=== PATIENT | female | born 1935 | race Caucasian/White ===

== ENCOUNTER → 2016-12-12 | Outpatient (CLI) | payer MEDICARE | END | disposition home or self-care (01) | LOC: CVU 14:26 | PROVIDERS: ATTEND Internal Medicine Cardiovascular Disease | DX: I08.3 Combined rheumatic disorders of mitral, aortic and tricuspid valves (principal); I37.1 Nonrheumatic pulmonary valve insufficiency; I51.7 Cardiomegaly; E78.00 Pure hypercholesterolemia, unspecified; Z87.891 Personal history of nicotine dependence; R01.1 Cardiac murmur, unspecified; I65.23 Occlusion and stenosis of bilateral carotid arteries | CPT/HCPCS: 93306; 93880 ==

== ENCOUNTER → 2017-01-25 | Outpatient (CLI) | payer MEDICARE ==
[~2017-01-25] VITALS: Ht 152.4 cm; Wt 54.5 kg
[~2017-01-25] MED LIST: ALBU8.5H3 INH; ASPI-496 PO; ATOR40TA78 PO; CLOP75TA22 PO
[2017-01-25 12:43] LABS: ASPARTATE AMINO TRANSFERASE 23 U/L (15-37); BLOOD UREA NITROGEN 22 mg/dL (7-18)
== END | disposition home or self-care (01) ==
LOC: STAR 11:30
PROVIDERS: ATTEND Internal Medicine Cardiovascular Disease
DX: Z01.818 Encounter for other preprocedural examination (principal); I73.9 Peripheral vascular disease, unspecified
CPT/HCPCS: 36415; 71020; 80053; 85025; 85610; 85730

== ENCOUNTER 2017-01-29 06:36 | Day surgery (SDC) | payer MEDICARE ==
[~2017-01-29] VITALS: Ht 152.4 cm; Wt 53.0 kg
[2017-01-29] MEDS ORDERED: SODIUM CHLORIDE 0.9% 1,000 ML IV SCH (06:55)
[2017-01-29 07:15] VITALS: BP 107/59
[2017-01-29] MEDS ORDERED: PROTAMINE SULFATE 10 MG/ML, 25ML ONE (07:35)
[2017-01-29] MEDS ORDERED: MIDAZOLAM 1 MG/ML, 5ML ONE (07:35)
[2017-01-29] MEDS ORDERED: NALOXONE 1 MG/ML, 2ML ONE (07:36)
[2017-01-29] MEDS ORDERED: FLUMAZENIL 0.1 MG/1 ML, 5ML ONE (07:36)
[2017-01-29] MEDS ORDERED: HEPARIN 1,000 UNITS/ML, 10ML ONE (07:36)
[2017-01-29] MEDS ORDERED: FENTANYL PF 100 MCG/2ML ONE (07:36)
[2017-01-29] MEDS ORDERED: NITROGLYCERIN 5 MG/ML, 10ML ONE (07:36)
[2017-01-29] MEDS ORDERED: LIDOCAINE 2%, 20ML ONE (07:49)
[2017-01-29] MEDS ORDERED: VISIPAQUE 270 MG/ML, 150ML BOTTLE ONE (09:27)
== END 2017-01-29 12:05 | disposition home or self-care (01) ==
LOC: OUT 06:36
PROVIDERS: ATTEND Internal Medicine Cardiovascular Disease
DX: I70.213 Atherosclerosis of native arteries of extremities with intermittent claudication, bilateral legs (principal); J44.9 Chronic obstructive pulmonary disease, unspecified; I48.91 Unspecified atrial fibrillation; I25.2 Old myocardial infarction
CPT/HCPCS: 37221; 37223; 75625; 75716; 99156; 99157; C1725; C1751; C1760; C1769; C1876; C1894; J1644; J2250; J3010; J3490; J7030; Q9966; 75630; J2720; J2310

== ENCOUNTER 2018-12-06 10:41 | Inpatient (IN) | payer MEDICARE ==
[~2018-12-06] VITALS: Ht 152.4 cm; Wt 53.3 kg
[~2018-12-06 10:41] MED LIST changes: -ALBU8.5H3 INH; +ALBU8.5H8 INH; -CLOP75TA22 PO; +CLOP75TA52 PO
[2018-12-06] MEDS ORDERED: SODIUM CHLORIDE FLUSH 10ML SYR IVF ONE (11:30)
--- NOTE | 2018-12-06 11:37 | NUR ---
Assumed care of pt. Pt presents to ED with c/o epigastric/periumbilical pain with no BM for about 6 days. Pt also states sudden onset of bilateral lower leg edema. Mild amount of distress noted. Breathing regular and unlabored. POC discussed. Will continue to monitor.
[2018-12-06 11:48] LABS: BASOPHILS # (AUTO) 0.09 x10^3/uL (0-0.1); BASOPHILS % (AUTO) 1 % (0-1); EOSINOPHILS # (AUTO) 0.09 x10^3/uL (0-0.4); EOSINOPHILS % (AUTO) 1 % (1-7); LYMPHOCYTES # (AUTO) 1.17 x10^3/uL (1-3.4); LYMPHOCYTES % (AUTO) 15 % (22-44); MD NO; MEAN CORPUSCULAR HEMOGLOBIN 29.3 pg (27.0-34.8); MEAN CORPUSCULAR HGB CONC 32.2 g/dL (32.4-35.8); MEAN CORPUSCULAR VOLUME 91.1 fL (80-100); MEAN PLATELET VOLUME 9.3 fL (7.4-10.4); MONOCYTES # (AUTO) 0.47 x10^3/uL (0.2-0.8); MONOCYTES % (AUTO) 6 % (2-9); NEUTROPHILS # (AUTO) 6.09 x10^3/uL (1.8-6.8); NEUTROPHILS % (AUTO) 77 % (42-75); PLATELET COUNT 177 x10^3/uL (130-400); RED CELL DISTRIBUTION WIDTH 15.8 % (9.6-15.2)
[2018-12-06 11:53] LABS: ALANINE AMINOTRANSFERASE 26 U/L (12-78); ALBUMIN 3.5 g/dL (3.4-5.0); ANION GAP 7 mmol/L (5-15); CALCIUM 8.5 mg/dL (8.5-10.1); CHLORIDE 112 mmol/L (98-107); CREATININE 0.97 mg/dL (0.55-1.02)
[2018-12-06 11:58] LABS: ALKALINE PHOSPHATASE 71 U/L (45-117); BILIRUBIN,TOTAL 0.8 mg/dL (0.2-1.0); TOTAL PROTEIN 6.6 g/dL (6.4-8.2)
--- NOTE | 2018-12-06 12:37 | NUR ---
IV STARTED. ERMD AT BEDSIDE TO UPDATE POC.
[2018-12-06] MEDS ORDERED: FUROSEMIDE 20 MG/2 ML IV ONE (13:00)
[2018-12-06] MEDS ORDERED: FUROSEMIDE 40 MG/4 ML ONE (13:21)
--- NOTE | 2018-12-06 13:26 | NUR ---
PT MEDICATED PER NOV. 5 RIGHTS VERIFIED PRIOR. 3 P'S ADDRESSED. POC UPDATED.
--- NOTE | 2018-12-06 13:40 | NUR ---
PT UP TO RESTROOM TO URINATE.
--- NOTE | 2018-12-06 13:59 | NUR ---
REPORT TO KENYA MA.
[2018-12-06 14:59] VITALS: BP 136/83
[2018-12-06] MEDS ORDERED: LABETALOL 5MG/ML, 20ML IVPush PRN (17:30)
[2018-12-06] MEDS ORDERED: ALBUTEROL SULFATE 2.5 MG/3 ML NPPB PRN (17:30)
[2018-12-06] MEDS ORDERED: hydrALAzine 20 MG/ML, 1ML IVPush PRN (17:30)
[2018-12-06] MEDS: HEPARIN 5,000 UNITS/ML, 1ML SQ SCH (17:50)
[2018-12-06 20:08] VITALS: BP 142/93
[2018-12-06] MEDS: ATORVASTATIN 40 MG TABLET PO SCH (22:02)
[2018-12-07 01:38] VITALS: BP 160/102
[2018-12-07] MEDS: HEPARIN 5,000 UNITS/ML, 1ML SQ SCH ×3 (01:57→21:36)
[2018-12-07 02:01] VITALS: BP 132/80
[2018-12-07] MEDS ORDERED: POTASSIUM CHLORIDE 20 MEQ TAB.ER.PRT PO ONE (07:00)
[2018-12-07] MEDS ORDERED: FUROSEMIDE 40 MG/4 ML IV ONE (07:00)
[2018-12-07 07:02] VITALS: BP 134/93
[2018-12-07 08:01] LABS: ANION GAP 7 mmol/L (5-15); CALCIUM 8.4 mg/dL (8.5-10.1); CHLORIDE 109 mmol/L (98-107)
[2018-12-07] MEDS: ASPIRIN 81 MG TABLET EC PO SCH (08:12)
[2018-12-07] MEDS: CLOPIDOGREL 75 MG TABLET PO SCH (08:12)
[2018-12-07 09:23] LABS: TROPONIN I 0.052 ng/mL (0.000-0.045)
[2018-12-07 12:55] VITALS: BP 154/103
[2018-12-07] MEDS: METOPROLOL TARTRATE 25 MG TABLET PO SCH ×2 (14:21→19:24)
[2018-12-07 18:46] VITALS: BP 137/81
[2018-12-07] MEDS: APIXABAN 2.5 MG TABLET PO SCH (19:24)
[2018-12-07] MEDS: ATORVASTATIN 40 MG TABLET PO SCH (19:24)
[2018-12-08 01:25] VITALS: BP 142/83
[2018-12-08 05:57] VITALS: BP 135/65
[2018-12-08] MEDS: METOPROLOL TARTRATE 25 MG TABLET PO SCH (06:00)
[2018-12-08 06:52] VITALS: BP 131/84
[2018-12-08] MEDS: CLOPIDOGREL 75 MG TABLET PO SCH (07:51)
[2018-12-08] MEDS: ASPIRIN 81 MG TABLET EC PO SCH (07:51)
[2018-12-08] MEDS: APIXABAN 2.5 MG TABLET PO SCH (07:51)
[2018-12-08 08:30] LABS: BASOPHILS # (AUTO) 0.06 x10^3/uL (0-0.1); BASOPHILS % (AUTO) 1 % (0-1); EOSINOPHILS # (AUTO) 0.07 x10^3/uL (0-0.4); EOSINOPHILS % (AUTO) 1 % (1-7); LYMPHOCYTES # (AUTO) 1.74 x10^3/uL (1-3.4); LYMPHOCYTES % (AUTO) 24 % (22-44); MD NO; MEAN CORPUSCULAR HEMOGLOBIN 29.4 pg (27.0-34.8); MEAN CORPUSCULAR HGB CONC 32.1 g/dL (32.4-35.8); MEAN CORPUSCULAR VOLUME 91.5 fL (80-100); MEAN PLATELET VOLUME 9.2 fL (7.4-10.4); MONOCYTES # (AUTO) 0.76 x10^3/uL (0.2-0.8); MONOCYTES % (AUTO) 10 % (2-9); NEUTROPHILS # (AUTO) 4.66 x10^3/uL (1.8-6.8); NEUTROPHILS % (AUTO) 64 % (42-75); PLATELET COUNT 170 x10^3/uL (130-400); RED BLOOD COUNT 4.85 x10^6/uL (3.82-5.3); RED CELL DISTRIBUTION WIDTH 15.3 % (9.6-15.2)
[2018-12-08 08:41] LABS: ANION GAP 9 mmol/L (5-15); CALCIUM 8.5 mg/dL (8.5-10.1); CHLORIDE 107 mmol/L (98-107)
[2018-12-08] MEDS ORDERED: LISINOPRIL 5 MG TABLET PO SCH (09:00)
[2018-12-08] MEDS ORDERED: SPIRONOLACTONE 25 MG TABLET PO SCH (09:00)
[2018-12-08] MEDS ORDERED: REGADENOSON 0.4 MG/5 ML SYRINGE ONE (09:15)
[2018-12-08] MEDS ORDERED: POTASSIUM CHLORIDE 20 MEQ TAB.ER.PRT PO ONE (10:00)
[2018-12-08] MEDS ORDERED: FUROSEMIDE 20 MG/2 ML IV ONE (10:00)
[2018-12-08 13:03] VITALS: BP 131/76
[2018-12-08] MEDS ORDERED: APIX2.5T PO (13:53)
[2018-12-08] MEDS ORDERED: METO25TA35 PO (13:53)
[2018-12-08] MEDS ORDERED: SPIR25TA PO (13:53)
[2018-12-08] MEDS ORDERED: LISI5TAB7 PO (13:53)
== END 2018-12-08 16:47 | disposition home or self-care (01) | DRG 308 ==
LOC: ED 12:47 → EDIP 12:48 → ED 13:08 → 5SO 14:34
PROVIDERS: ADMIT Hospitalist; ATTEND Hospitalist
DX: I48.0 Paroxysmal atrial fibrillation (principal); I50.43 Acute on chronic combined systolic (congestive) and diastolic (congestive) heart failure; I49.3 Ventricular premature depolarization; I25.2 Old myocardial infarction; I73.9 Peripheral vascular disease, unspecified; J44.9 Chronic obstructive pulmonary disease, unspecified; K59.00 Constipation, unspecified; Z87.891 Personal history of nicotine dependence; I95.9 Hypotension, unspecified; I08.3 Combined rheumatic disorders of mitral, aortic and tricuspid valves
CPT/HCPCS: 36415; 71045; 74022; 78452; 80048; 80053; 83690; 83735; 83880; 84484; 85025; 93005; 93017; 93306; 96374; G0378; J1644; J1940; J2785; A9502; C9898

== ENCOUNTER 2020-07-15 09:59 | Emergency (ER) | payer MEDICARE ==
[~2020-07-15] VITALS: Ht 152.4 cm; Wt 54.0 kg
[~2020-07-15 09:59] MED LIST changes: +APIX2.5T PO; +LISI5TAB7 PO; +METO25TA35 PO; +SPIR25TA PO
--- NOTE | 2020-07-15 11:08 | NUR ---
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
[2020-07-15 11:23] LABS: BASOPHILS % (AUTO) 1 % (0-1); EOSINOPHILS % (AUTO) 1 % (1-7); LYMPHOCYTES % (AUTO) 17 % (22-44); MEAN CORPUSCULAR HEMOGLOBIN 32.2 pg (27.0-34.8); MEAN PLATELET VOLUME 9.7 fL (7.4-10.4); MONOCYTES % (AUTO) 8 % (2-9); NEUTROPHILS % (AUTO) 74 % (42-75); PLATELET COUNT 134 x10^3/uL (130-400); RED BLOOD COUNT 4.67 x10^6/uL (3.82-5.3)
[2020-07-15 11:35] LABS: ALBUMIN 4.1 g/dL (3.4-5.0); ANION GAP 7 mmol/L (5-15); CALCIUM 9.5 mg/dL (8.5-10.1); CHLORIDE 110 mmol/L (98-107)
[2020-07-15 11:39] LABS: ALANINE AMINOTRANSFERASE 21 U/L (12-78); ALKALINE PHOSPHATASE 54 U/L (45-117); CREATININE 1.74 mg/dL (0.55-1.02); TOTAL PROTEIN 7.4 g/dL (6.4-8.2)
--- NOTE | 2020-07-15 11:43 | NUR ---
FIRST CONTACT WITH PT. PT C/O LOWER ABD PAIN WITH VOMITTING. HX OF CHF/HTN/HLD. PT ALSO C/O BILATERAL FEET SWELLING WELL. PT DENIES URINARY SYMPTOMS. LBM YESTERDAY. PT'S AOX4. RESPS EVEN AND UNLABORED. BP/SPO2 MONITORS IN PLACE. CALL LIGHT WITHIN REACH. EDMD AT BEDSIDE EVALUATING AT THIS TIME.
--- NOTE | 2020-07-15 11:44 | NUR ---
PT AMB TO BR AND BACK TO ROOM WITH STEADY GAIT. URINE COLLECTED AND UA SENT.
[2020-07-15 12:02] LABS: TROPONIN I 0.036 ng/mL (0.000-0.045)
--- NOTE | 2020-07-15 12:09 | NUR ---
Break RN: Bedside report received from primary RN, warm blanket provided for patient. Patient connected to vitals machine, call light within reach, no further needs at this time.
[2020-07-15 12:29] LABS: MICROSCOPIC AUTO
[2020-07-15 12:37] LABS: MD SCAN
[2020-07-15] MEDS ORDERED: FUROSEMIDE 40 MG/4 ML IV ONE (13:00)
[2020-07-15] MEDS ORDERED: FUROSEMIDE 40 MG/4 ML ONE (13:27)
[2020-07-15 13:53] VITALS: BP 12/73
--- NOTE | 2020-07-15 13:54 | NUR ---
PIV EST ON R FOREARM WITH NO COMPLICATIONS. PT MEDICATED PER EMAR.
[2020-07-15] MEDS ORDERED: LISI-170 PO (14:06)
[2020-07-15] MEDS ORDERED: METO25TA35 PO (14:06)
[2020-07-15] MEDS ORDERED: OMEP-110 PO (14:06)
--- NOTE | 2020-07-15 14:19 | NUR ---
pt amb to br with steady gait.
--- NOTE | 2020-07-15 15:08 | NUR ---
edmd at bedside to explain al results at this time.
--- NOTE | 2020-07-15 15:27 | NUR ---
Patient given discharge instructions and they have confirmed that they understand the instructions. Patient ambulatory with steady gait.
== END 2020-07-15 15:28 | disposition home or self-care (01) ==
LOC: ED 12:04
DX: R60.0 Localized edema (principal); I50.9 Heart failure, unspecified; J90 Pleural effusion, not elsewhere classified; R11.2 Nausea with vomiting, unspecified
CPT/HCPCS: 36415; 71045; 74021; 80053; 81001; 83690; 83880; 84484; 85025; 87086; 96374; 99284; J1940; 99285

== ENCOUNTER → 2020-07-21 | Outpatient (CLI) | payer MEDICARE ==
[~2020-07-21] MED LIST changes: +LISI-170 PO; +OMEP-110 PO
== END | disposition home or self-care (01) ==
LOC: CVU 07:20
PROVIDERS: ATTEND Internal Medicine Cardiovascular Disease
DX: I08.3 Combined rheumatic disorders of mitral, aortic and tricuspid valves (principal); I48.0 Paroxysmal atrial fibrillation; I70.213 Atherosclerosis of native arteries of extremities with intermittent claudication, bilateral legs; I70.8 Atherosclerosis of other arteries; I25.2 Old myocardial infarction; I70.203 Unspecified atherosclerosis of native arteries of extremities, bilateral legs
CPT/HCPCS: 93306; 93356; 93922; 93925; 93978

== ENCOUNTER → 2020-08-24 | Outpatient (CLI) | payer MEDICARE | END | disposition home or self-care (01) | LOC: CARD 13:28 | PROVIDERS: ATTEND Internal Medicine Cardiovascular Disease | DX: R06.02 Shortness of breath (principal) | CPT/HCPCS: 94060; 94726; 94729 ==

== ENCOUNTER 2020-09-09 09:38 | Inpatient (IN) | payer MEDICARE ==
[~2020-09-09] VITALS: Ht 152.4 cm; Wt 54.5 kg
[2020-09-09] MEDS ORDERED: FUROSEMIDE 40 MG/4 ML IVPush ONE (10:30)
[2020-09-09] MEDS ORDERED: FUROSEMIDE 40 MG/4 ML ONE (11:00)
[2020-09-09 11:21] LABS: ANION GAP 4 mmol/L (5-15); CALCIUM 9.3 mg/dL (8.5-10.1); CHLORIDE 105 mmol/L (98-107)
--- NOTE | 2020-09-09 11:23 | NUR ---
pt ambulating to bathroom with daughter. no assistance needed. breathing appears to have improved.
[2020-09-09 11:27] LABS: ALANINE AMINOTRANSFERASE 25 U/L (12-78); ALKALINE PHOSPHATASE 74 U/L (45-117); BILIRUBIN,TOTAL 1.2 mg/dL (0.2-1.0); CREATININE 1.41 mg/dL (0.55-1.02); TOTAL PROTEIN 7.4 g/dL (6.4-8.2)
--- NOTE | 2020-09-09 11:28 | NUR ---
LUSTERER: RECEIVED CALL FROM LAB, BLOOD SPECIMAN CLOTTED, PT TO BE REDRAWN.
[2020-09-09] MEDS ORDERED: ALBUTEROL/IPRATROPIUM 2.5MG/0.5MG, 3 ML ONE (11:41)
[2020-09-09] MEDS ORDERED: methylPREDNISolone SOD SUCC 125 MG/2 ML ONE (11:41)
[2020-09-09] MEDS ORDERED: methylPREDNISolone SOD SUCC 125 MG/2 ML IV ONE (12:00)
[2020-09-09] MEDS ORDERED: ALBUTEROL/IPRATROPIUM 2.5MG/0.5MG, 3 ML NPPB ONE (12:00)
--- NOTE | 2020-09-09 12:03 | NUR ---
breathing tx started.
[2020-09-09 12:18] LABS: BASOPHILS % (AUTO) 1 % (0-1); EOSINOPHILS % (AUTO) 1 % (1-7); LYMPHOCYTES % (AUTO) 16 % (22-44); MEAN CORPUSCULAR HEMOGLOBIN 31.5 pg (27.0-34.8); MEAN CORPUSCULAR HGB CONC 32.3 g/dL (32.4-35.8); MEAN PLATELET VOLUME 10.1 fL (7.4-10.4); MONOCYTES % (AUTO) 11 % (2-9); NEUTROPHILS % (AUTO) 72 % (42-75); PLATELET COUNT 124 x10^3/uL (130-400); RED BLOOD COUNT 4.82 x10^6/uL (3.82-5.3); RED CELL DISTRIBUTION WIDTH 14.8 % (9.6-15.2)
[2020-09-09] MEDS ORDERED: ACETAMINOPHEN 325 MG TABLET PO PRN (12:30)
[2020-09-09] MEDS ORDERED: MELATONIN 5 MG TABLET PO PRN (12:30)
[2020-09-09] MEDS ORDERED: ALBUTEROL HFA 90 MCG/SPRAY INH PRN (12:30)
[2020-09-09] MEDS ORDERED: ONDANSETRON 2MG/ML, 2ML IVPush PRN (12:30)
[2020-09-09] MEDS ORDERED: DILTIAZEM 5 MG/ML, 5ML IVPush PRN (12:30)
[2020-09-09] MEDS ORDERED: LABETALOL 5MG/ML, 20ML IVPush PRN (12:30)
[2020-09-09] MEDS ORDERED: DOCUSATE 100 MG CAPSULE PO PRN (12:30)
[2020-09-09 13:03] LABS: MD SCAN
--- NOTE | 2020-09-09 13:18 | NUR ---
TASK RN ASSISTING PRIMARY. PT TRANSPORTED TO FLOOR.
[2020-09-09 13:23] LABS: FREE T4 (FREE THYROXINE) 1.48 ng/dL (0.76-1.46); TROPONIN I 0.084 ng/mL (0.000-0.045)
[2020-09-09 13:40] VITALS: BP 114/88
[2020-09-09 13:41] VITALS: BP 114/89
[2020-09-09] MEDS ORDERED: POTA10CA PO (13:55)
[2020-09-09 14:10] VITALS: BP 125/83
[2020-09-09 17:58] LABS: MICROSCOPIC AUTO
[2020-09-09 18:04] LABS: CHLORIDE,URINE RANDOM 103 mmol/L; POTASSIUM,URINE RANDOM 53 mmol/L; SODIUM,URINE RANDOM 59 mmol/L
[2020-09-09] MEDS: FUROSEMIDE 40 MG/4 ML IV SCH (18:23)
[2020-09-09 19:05] LABS: TROPONIN I 0.095 ng/mL (0.000-0.045)
[2020-09-09 19:08] VITALS: BP 108/79
[2020-09-09] MEDS: ATORVASTATIN 80 MG TABLET PO SCH (20:48)
[2020-09-09] MEDS: methylPREDNISolone SOD SUCC 40 MG/ML IV SCH (20:48)
[2020-09-09] MEDS: METOPROLOL TARTRATE 25 MG TAB PO SCH (20:48)
[2020-09-09] MEDS: SODIUM CHLORIDE FLUSH 10ML SYR IVF SCH (20:49)
[2020-09-09] MEDS: APIXABAN 2.5 MG TABLET PO SCH (20:49)
[2020-09-10 00:11] VITALS: BP 105/80
[2020-09-10] MEDS: OMEPRAZOLE 20 MG CAPSULE.DR PO SCH (06:20)
[2020-09-10] MEDS: FUROSEMIDE 40 MG/4 ML IV SCH ×2 (06:21→17:39)
[2020-09-10 06:32] LABS: CHLORIDE 104 mmol/L (98-107)
[2020-09-10 06:37] LABS: ANION GAP 10 mmol/L (5-15); CALCIUM 9.6 mg/dL (8.5-10.1); CREATININE 1.53 mg/dL (0.55-1.02)
[2020-09-10 06:38] LABS: BASOPHILS % (AUTO) 0 % (0-1); EOSINOPHILS % (AUTO) 0 % (1-7); LYMPHOCYTES % (AUTO) 20 % (22-44); MEAN CORPUSCULAR HEMOGLOBIN 31.7 pg (27.0-34.8); MEAN CORPUSCULAR HGB CONC 32.5 g/dL (32.4-35.8); MEAN PLATELET VOLUME 10.2 fL (7.4-10.4); MONOCYTES % (AUTO) 4 % (2-9); NEUTROPHILS % (AUTO) 76 % (42-75); PLATELET COUNT 129 x10^3/uL (130-400); RED BLOOD COUNT 4.63 x10^6/uL (3.82-5.3); RED CELL DISTRIBUTION WIDTH 14.7 % (9.6-15.2)
[2020-09-10 07:30] VITALS: BP 107/90
[2020-09-10 07:48] LABS: MD SCAN
[2020-09-10] MEDS: methylPREDNISolone SOD SUCC 40 MG/ML IV SCH ×2 (08:58→21:08)
[2020-09-10] MEDS: APIXABAN 2.5 MG TABLET PO SCH ×2 (08:58→21:08)
[2020-09-10] MEDS: METOPROLOL TARTRATE 25 MG TAB PO SCH ×2 (08:58→21:08)
[2020-09-10] MEDS: SODIUM CHLORIDE FLUSH 10ML SYR IVF SCH ×2 (09:00→21:09)
[2020-09-10 12:25] LABS: TROPONIN I 0.113 ng/mL (0.000-0.045)
[2020-09-10 14:18] VITALS: BP 117/90
[2020-09-10 19:47] VITALS: BP 111/81
[2020-09-10] MEDS: ATORVASTATIN 80 MG TABLET PO SCH (21:08)
[2020-09-11 02:00] VITALS: BP 97/73
[2020-09-11 05:22] LABS: CALCIUM 9.1 mg/dL (8.5-10.1); CHLORIDE 103 mmol/L (98-107)
[2020-09-11 05:25] LABS: ANION GAP 9 mmol/L (5-15); CREATININE 1.58 mg/dL (0.55-1.02)
[2020-09-11 07:35] VITALS: BP 108/85
[2020-09-11] MEDS: FUROSEMIDE 40 MG TABLET PO SCH (09:43)
[2020-09-11] MEDS: OMEPRAZOLE 20 MG CAPSULE.DR PO SCH (09:43)
[2020-09-11] MEDS: methylPREDNISolone SOD SUCC 40 MG/ML IV SCH (09:43)
[2020-09-11] MEDS: SODIUM CHLORIDE FLUSH 10ML SYR IVF SCH ×2 (09:43→20:13)
[2020-09-11] MEDS: METOPROLOL TARTRATE 25 MG TAB PO SCH ×2 (09:43→20:15)
[2020-09-11] MEDS: APIXABAN 2.5 MG TABLET PO SCH ×2 (09:43→20:12)
[2020-09-11 13:35] VITALS: BP 87/58
[2020-09-11 19:58] VITALS: BP 114/80
[2020-09-11] MEDS: ATORVASTATIN 80 MG TABLET PO SCH (20:12)
[2020-09-12 01:29] VITALS: BP 98/75
[2020-09-12] MEDS: OMEPRAZOLE 20 MG CAPSULE.DR PO SCH (05:25)
[2020-09-12 05:50] LABS: ANION GAP 8 mmol/L (5-15); CHLORIDE 103 mmol/L (98-107)
[2020-09-12 05:57] LABS: ALANINE AMINOTRANSFERASE 46 U/L (12-78); ALBUMIN 3.7 g/dL (3.4-5.0); ALKALINE PHOSPHATASE 78 U/L (45-117); BILIRUBIN,TOTAL 1.1 mg/dL (0.2-1.0); CALCIUM 9.2 mg/dL (8.5-10.1); CREATININE 1.57 mg/dL (0.55-1.02); TOTAL PROTEIN 6.7 g/dL (6.4-8.2)
[2020-09-12 08:03] VITALS: BP 86/62
[2020-09-12 08:46] VITALS: BP 100/70
[2020-09-12] MEDS: methylPREDNISolone SOD SUCC 40 MG/ML IV SCH (08:53)
[2020-09-12] MEDS: METOPROLOL TARTRATE 25 MG TAB PO SCH (08:53)
[2020-09-12] MEDS: FUROSEMIDE 40 MG TABLET PO SCH (08:55)
[2020-09-12] MEDS: APIXABAN 2.5 MG TABLET PO SCH (08:55)
[2020-09-12] MEDS: SODIUM CHLORIDE FLUSH 10ML SYR IVF SCH (08:56)
[2020-09-12] MEDS ORDERED: PRED20TA PO (12:07)
[2020-09-12] MEDS ORDERED: ALBU18HF INH (12:07)
[2020-09-12 13:00] VITALS: BP 106/69
== END 2020-09-12 13:58 | disposition home or self-care (01) | DRG 280 ==
LOC: ED 13:26 → 5SO 13:32 → DCLOUNGE 09-12 13:48
PROVIDERS: ADMIT Hospitalist; ATTEND Hospitalist
DX: I21.4 Non-ST elevation (NSTEMI) myocardial infarction (principal); I50.23 Acute on chronic systolic (congestive) heart failure; J96.91 Respiratory failure, unspecified with hypoxia; N17.9 Acute kidney failure, unspecified; R18.8 Other ascites; I48.0 Paroxysmal atrial fibrillation; K76.1 Chronic passive congestion of liver; N18.9 Chronic kidney disease, unspecified; D69.6 Thrombocytopenia, unspecified; E78.5 Hyperlipidemia, unspecified; I25.10 Atherosclerotic heart disease of native coronary artery without angina pectoris; I27.20 Pulmonary hypertension, unspecified; J43.9 Emphysema, unspecified; K21.9 Gastro-esophageal reflux disease without esophagitis; Z79.01 Long term (current) use of anticoagulants; Z87.891 Personal history of nicotine dependence
CPT/HCPCS: 36415; 71045; 76700; 80048; 80053; 81001; 82436; 82570; 83690; 83735; 83880; 84100; 84133; 84300; 84439; 84443; 84484; 85025; 87086; 87147; 93005; 93970; G0378; J1940; J2920; J2930

== ENCOUNTER → 2021-01-13 | Outpatient (CLI) | payer MEDICARE ==
[~2021-01-13] MED LIST changes: +ALBU18HF INH; +POTA10CA PO; +PRED20TA PO
== END | disposition home or self-care (01) ==
LOC: STAR 14:09
PROVIDERS: ATTEND Internal Medicine Cardiovascular Disease
DX: Z20.822 Contact with and (suspected) exposure to COVID-19 (principal)
CPT/HCPCS: U0003

== ENCOUNTER 2021-01-17 11:29 | Day surgery (SDC) | payer MEDICARE ==
[~2021-01-17] VITALS: Ht 152.4 cm; Wt 49.5 kg
[2021-01-17] MEDS ORDERED: SODIUM CHLORIDE 0.9% 1,000 ML IV ONE (12:00)
[2021-01-17] MEDS ORDERED: SODIUM CHLORIDE 0.9% 1,000 ML IV SCH (12:00)
[2021-01-17 12:07] VITALS: BP 94/58
[2021-01-17] MEDS ORDERED: UBIQ200C PO (12:25)
[2021-01-17] MEDS ORDERED: MULT1TAB58 PO (12:25)
[2021-01-17] MEDS ORDERED: SPIR25TA5 PO (12:25)
[2021-01-17] MEDS ORDERED: FLUT1BLS3 IH (12:25)
[2021-01-17] MEDS ORDERED: FURO80TA77 PO (12:25)
[2021-01-17] MEDS ORDERED: METO25TA91 PO (12:25)
[2021-01-17] MEDS ORDERED: FAMO-79 PO (12:25)
[2021-01-17 12:35] LABS: BASOPHILS % (AUTO) 1 % (0-1); EOSINOPHILS % (AUTO) 2 % (1-7); LYMPHOCYTES % (AUTO) 19 % (22-44); MEAN CORPUSCULAR HEMOGLOBIN 31.5 pg (27.0-34.8); MEAN PLATELET VOLUME 9.3 fL (7.4-10.4); MONOCYTES % (AUTO) 10 % (2-9); NEUTROPHILS % (AUTO) 69 % (42-75); PLATELET COUNT 146 x10^3/uL (130-400); RED BLOOD COUNT 4.49 x10^6/uL (3.82-5.3)
[2021-01-17 12:44] LABS: ANION GAP 9 mmol/L (5-15); CALCIUM 9.3 mg/dL (8.5-10.1); CHLORIDE 105 mmol/L (98-107); CREATININE 1.64 mg/dL (0.55-1.02)
[2021-01-17] MEDS ORDERED: PROPOFOL 10 MG/ML, 20ML ONE (13:25)
[2021-01-17] MEDS ORDERED: HEPARIN 1,000 UNITS/ML, 10ML ONE (13:57)
[2021-01-17] MEDS ORDERED: VERAPAMIL 2.5 MG/ML, 2ML ONE (13:57)
[2021-01-17] MEDS ORDERED: LIDOCAINE-MPF 1%, 5ML ONE (13:57)
[2021-01-17] MEDS ORDERED: FENTANYL PF 100 MCG/2ML ONE (14:01)
[2021-01-17] MEDS ORDERED: MIDAZOLAM 1 MG/ML, 2ML ONE (14:01)
[2021-01-17] MEDS ORDERED: LIDOCAINE 1%, 20ML ONE (14:24)
[2021-01-25] MEDS ORDERED: AMLO-150 PO (09:07)
[2021-05-02] MEDS ORDERED: SERT-331 PO (14:44)
[2021-05-02] MEDS ORDERED: APIX2.5T PO (14:44)
== END 2021-01-17 20:14 | disposition home or self-care (01) ==
LOC: CACL 11:29 → 5SO 17:09 → CACL 20:14
PROVIDERS: ATTEND Internal Medicine Cardiovascular Disease
DX: I08.1 Rheumatic disorders of both mitral and tricuspid valves (principal); I25.119 Atherosclerotic heart disease of native coronary artery with unspecified angina pectoris; I70.0 Atherosclerosis of aorta; I70.201 Unspecified atherosclerosis of native arteries of extremities, right leg; I11.0 Hypertensive heart disease with heart failure; I50.41 Acute combined systolic (congestive) and diastolic (congestive) heart failure; I48.0 Paroxysmal atrial fibrillation; I25.2 Old myocardial infarction; J44.9 Chronic obstructive pulmonary disease, unspecified; I65.29 Occlusion and stenosis of unspecified carotid artery; E66.3 Overweight; E78.2 Mixed hyperlipidemia; Z68.21 Body mass index [BMI] 21.0-21.9, adult; Z79.01 Long term (current) use of anticoagulants; Z79.899 Other long term (current) drug therapy; Z87.891 Personal history of nicotine dependence; Z91.013 Allergy to seafood; Z99.81 Dependence on supplemental oxygen
CPT/HCPCS: 36415; 80048; 85025; 93312; 93321; 93325; 93458; C1769; C1894; J1644; Q9967; G0378; J2250; J2704; J3010